=== PATIENT | male | born 1985 | race Two or more races ===

== ENCOUNTER 2017-02-26 10:20 | Emergency (ER) | payer BC ==
[~2017-02-26] VITALS: Ht 165.1 cm; Wt 83.9 kg
[~2017-02-26 10:20] MED LIST: [UNRECOGNIZED DRUG - REMARK]
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
--- NOTE | 2017-02-26 11:59 | NUR ---
decompression of subungual hematoma done by dr aleman using electrocautery. pt tolerated procedure well.
--- NOTE | 2017-02-26 12:03 | NUR ---
Patient discharged to home in stable condition. Written and verbal after care instructions given. Patient verbalizes understanding of instruction.
[2017-02-26 12:06] VITALS: BP 128/70
== END 2017-02-26 12:07 | disposition home or self-care (01) ==
LOC: ER 10:23
DX: S90.111A Contusion of right great toe without damage to nail, initial encounter (principal); W22.8XXA Striking against or struck by other objects, initial encounter; Y93.66 Activity, soccer; Y92.89 Other specified places as the place of occurrence of the external cause; Y99.8 Other external cause status
CPT/HCPCS: 73660-TC; A4606; Z7610

== ENCOUNTER 2017-05-15 21:10 | Emergency (ER) | payer BC ==
[~2017-05-15] VITALS: Ht 162.6 cm; Wt 84.4 kg
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
[2017-05-15] MEDS ORDERED: PENICILLIN V POTASSIUM 500 MG TABLET PO ONE ×2 (22:30→22:42)
--- NOTE | 2017-05-15 22:46 | NUR ---
Patient discharged to home in stable condition. Written and verbal after care instructions given. Patient verbalizes understanding of instruction. Patient is ambulatory with a steady gait, no further complaints.
--- NOTE | 2017-05-15 22:46 | NUR ---
PATIENT REFUSED TO TAKE PENICILLIN PO, ENCOURAGED X3, EXPLAINED RISKS AND BENEFITS, PATIENT STILL HAS REFUSED. DR RIOS NOTIFIED.
[2017-05-15 22:50] VITALS: BP 158/89
== END 2017-05-15 22:51 | disposition home or self-care (01) ==
LOC: ER 21:11
DX: S00.531A Contusion of lip, initial encounter (principal); W22.8XXA Striking against or struck by other objects, initial encounter; Y92.89 Other specified places as the place of occurrence of the external cause; Y93.89 Activity, other specified; Y99.8 Other external cause status
CPT/HCPCS: A4606; Z7610

== ENCOUNTER → 2017-09-19 | Emergency (ER) | payer BC ==
[~2017-09-19] VITALS: Ht 165.1 cm; Wt 81.6 kg
[~2017-09-19] MED LIST changes: +ASPIRIN 81 MG TAB.CHEW ONE; +ASPIRIN 81 MG TAB.CHEW PO ONE
--- NOTE | 2017-09-19 06:20 | NUR ---
PT PRESENTED TO THE ER WITH A C/O MEDIAL/L SIDED CHEST PAIN X 1 WEEK. PT STATED THAT HE FELT LIKE HIS HEART WAS "GOING TO EXPLODE". PT IS ALSO C/O PAIN WITH INSPIRATION. PAIN IS 6/10. DR. MAK IS AT THE BEDSIDE.
[2017-09-19 06:36] LABS: BASOPHILS % (AUTO) 0.6 % (0.0-2.0); EOSINOPHILS # (AUTO) 0.2 /CMM (0.0-0.7); EOSINOPHILS % (AUTO) 4.1 % (0.0-6.0); HEMATOCRIT 43 % (39-51); HEMOGLOBIN 14.9 g/dL (13.5-17.5); LYMPHOCYTES # (AUTO) 2.3 /CMM (0.8-4.8); MEAN CORPUSCULAR HEMOGLOBIN 30 PG (26.0-33.0); MEAN CORPUSCULAR HGB CONC 35 g/dl (31.0-36.0); MEAN CORPUSCULAR VOLUME 87 fL (80-96); MONOCYTES # (AUTO) 0.5 /CMM (0.1-1.30); MONOCYTES % (AUTO) 7.9 % (2.0-12.0); NEUTROPHILS # (AUTO) 2.9 /CMM (1.8-8.9); NEUTROPHILS % (AUTO) 49.4 % (43.0-81.0); PLATELET COUNT (AUTO) 250 /CMM (150-450); RDW COEFFICIENT OF VARIATION 13.6 (11.5-15.0); RED BLOOD CELL COUNT(AUTO) 4.94 MIL/uL (4.5-6.0)
[2017-09-19 06:46] LABS: CALCIUM, SERUM 8.9 mg/dL (8.5-10.1); CARBON DIOXIDE 28 mmol/L (21-32); CHLORIDE 107 mmol/L (98-107); CREATININE 0.8 mg/dL (0.6-1.3); GLUCOSE 86 mg/dL (74-106); POTASSIUM 3.7 mmol/L (3.5-5.1); SODIUM SERUM 144 mmol/L (136-145); UREA NITROGEN, BLOOD 13 mg/dL (7-18)
[2017-09-19 06:54] LABS: INR 0.86 (0.87-1.13); PROTHROMBIN TIME 8.9 SECS (9.5-12.7)
--- NOTE | 2017-09-19 07:00 | NUR ---
CXR DONE AT THE BEDSIDE.
--- NOTE | 2017-09-19 07:05 | NUR ---
ASSUMED CARE OF PT. RECVD REPORT FROM RAMONA. PT AAO4. C/O LEFT STERNAL CP 02/09 [place] AT PRESENT. "FEELS BETTER THAN WHEN I CAME IN. 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 I HAVE HIGH BLOOD PRESSURE AND IT RUNS IN MY FAMILY". NO SOB. DOES NOT APPEAR TO BE IN PAIN, BUT STATES "IT FEELS LIKE MY HEART IS GOING TO JUMP OUT OF MY CHEST". CXR AND TROPS PENDING RESULTS. 18G PIV INTACT.
--- NOTE | 2017-09-19 07:05 | NUR ---
REPORT GIVEN TO ENRRIQUE SUH FOR FREDRICK.
[2017-09-19 07:07] LABS: TROPONIN I < 0.017 ng/mL (0.00-0.056)
[2017-09-19 07:59] VITALS: BP 141/65
--- NOTE | 2017-09-19 08:01 | NUR ---
D/C HOME VIA DRIVING SELF IN CAR. PT STABLE. D.DIMER AND TROP NEG. EDUCATION HANDOUT FOR NONSPECIFIC CP DISCUSSED AND PROVIDED TO PT. D/C RAC 18G PIV.
== END | disposition home or self-care (01) ==
LOC: ER 06:11
DX: R07.9 Chest pain, unspecified (principal); R05 Cough; Z79.82 Long term (current) use of aspirin
CPT/HCPCS: 36415; 71010; 80048; 84484; 85025; 85378; 85730; 93005; 99285; A4606; Z7610

== ENCOUNTER 2019-01-10 16:54 | Emergency (ER) | payer BC ==
[~2019-01-10] VITALS: Ht 165.1 cm; Wt 78.0 kg
[~2019-01-10 16:54] MED LIST changes: -ASPIRIN 81 MG TAB.CHEW ONE; -ASPIRIN 81 MG TAB.CHEW PO ONE
--- NOTE | 2019-01-10 17:00 | NUR ---
AAOX3, CAME TO ER C/O PRESSURE ON THE LEFT EYE SINCE YESTERDAY. RR IS EVEN AND UNLABORED WITH NAD NOTED. SKIN IS WARM AND DRY. AWAITING MD FOR EVAL.
[2019-01-10] MEDS ORDERED: FLUORESCEIN SODIUM OPHTH 1 EA STRIP ONE (17:48)
[2019-01-10] MEDS ORDERED: FLUORESCEIN SODIUM OPHTH 1 EA STRIP OP ONE (18:00)
[2019-01-10] MEDS ORDERED: TETRACAINE HCL/PF 0.5% UD 2 ML BOTTLE LEFTEYE ONE ×2 (18:00)
[2019-01-10 18:59] VITALS: BP 145/85
--- NOTE | 2019-01-10 18:59 | NUR ---
Patient discharged to home in stable condition. Written and verbal after care instructions given. Patient verbalizes understanding of instruction.
== END 2019-01-10 19:00 | disposition home or self-care (01) ==
LOC: ER 16:54
DX: G43.809 Other migraine, not intractable, without status migrainosus (principal); F17.200 Nicotine dependence, unspecified, uncomplicated
CPT/HCPCS: 82962-TC

== ENCOUNTER 2019-09-05 22:08 | Emergency (ER) | payer BC, MEDICAID ==
[~2019-09-05] VITALS: Ht 165.1 cm; Wt 81.6 kg
[2019-09-05 22:08] VITALS: BP 155/103
[2019-09-05 22:48] LABS: BASOPHILS # (AUTO) 0.1 /CMM (0.0-0.2); BASOPHILS % (AUTO) 0.9 % (0.0-2.0); EOSINOPHILS % (AUTO) 4.5 % (0.0-6.0); HEMATOCRIT 43 % (39-51); HEMOGLOBIN 15.4 g/dL (13.5-17.5); LYMPHOCYTES # (AUTO) 1.9 /CMM (0.8-4.8); LYMPHOCYTES % (AUTO) 27.7 % (20.0-44.0); MEAN CORPUSCULAR HGB CONC 36 g/dl (31.0-36.0); MEAN CORPUSCULAR VOLUME 89 fL (80-96); MONOCYTES # (AUTO) 0.4 /CMM (0.1-1.30); MONOCYTES % (AUTO) 5.1 % (2.0-12.0); NEUTROPHILS # (AUTO) 4.3 /CMM (1.8-8.9); NEUTROPHILS % (AUTO) 61.8 % (43.0-81.0); PLATELET COUNT (AUTO) 308 /CMM (150-450); RED BLOOD CELL COUNT(AUTO) 4.84 MIL/uL (4.5-6.0)
[2019-09-05 22:54] LABS: CALCIUM, SERUM 8.7 mg/dL (8.5-10.1); CARBON DIOXIDE 31 mmol/L (21-32); CHLORIDE 104 mmol/L (98-107); CREATININE 1.1 mg/dL (0.6-1.3); GLUCOSE 128 mg/dL (74-106); POTASSIUM 3.8 mmol/L (3.5-5.1); SODIUM SERUM 138 mmol/L (136-145); UREA NITROGEN, BLOOD 11 mg/dL (7-18)
--- NOTE | 2019-09-05 23:02 | NUR ---
C/O NONRADIATING L SIDED CP X1 MONTH. COCCAINE USE 1 WEEK AGO. PT AAOX4, VSS. RR EVEN & UNLABORED. DENIES SOB, DIZZINESS, N/V, WEAKNESS @ THIS TIME. PT SEEN & EVAL'D BY DR. RAYMOND. 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 WILL CONT TO MONITOR.
[2019-09-05 23:06] LABS: ALBUMIN 3.8 g/dL (3.4-5.0); ALKALINE PHOSPHATASE 114 U/L (46-116); BILIRUBIN,TOTAL 0.5 mg/dL (0.2-1.0); TOTAL PROTEIN, SERUM 7.6 g/dL (6.4-8.2)
[2019-09-05 23:19] LABS: ALANINE AMINOTRANSFERASE 48 U/L (12-78); ASPARTATE AMINOTRANSFERASE 36 U/L (15-37)
[2019-09-05] MEDS ORDERED: ASPIRIN 325 MG TABLET ONE (23:38)
[2019-09-05] MEDS: ASPIRIN 325 MG TABLET PO ONE (23:40)
--- NOTE | 2019-09-06 00:01 | NUR ---
Patient does not wish to proceed with medical care recommended by Dr. RAYMOND. Patient given information related to possible complications, up to and including , which could occur as a result of leaving the hospital at this time. Patient verbalizes understanding of risks involved due to leaving against medical advice. Patient has signed AMA form.
== END 2019-09-06 00:03 | disposition left against medical advice (07) ==
LOC: ER 22:10
DX: R07.89 Other chest pain (principal); R94.31 Abnormal electrocardiogram [ECG] [EKG]; F17.200 Nicotine dependence, unspecified, uncomplicated
CPT/HCPCS: 36415; 71045-TC; 80048-TC; 80076-TC; 80305; 84484-TC; 85025-TC; 85730-TC

== ENCOUNTER 2020-05-27 21:02 | Emergency (ER) | payer BC ==
[~2020-05-27] VITALS: Ht 165.1 cm; Wt 81.6 kg
--- NOTE | 2020-05-27 21:16 | NUR ---
CALLED PT TO TRIAGE ROOM. NO ANSWER
--- NOTE | 2020-05-27 21:20 | NUR ---
CALLED FOR TRIAGE. NO ANSWER
[2020-05-27 21:36] VITALS: BP 143/84
[2020-05-27 22:26] LABS: APPEARANCE,URINE CLEAR (CLEAR); BILIRUBIN,URINE NEGATIVE (NEGATIVE); BLOOD, URINE NEGATIVE Ery/uL (NEGATIVE); COLOR,URINE YELLOW (YELLOW); KETONES,URINE NEGATIVE (NEGATIVE); LEUKOCYTE ESTERASE ,URINE NEGATIVE (NEGATIVE); NITRITE, URINE NEGATIVE (NEGATIVE); PH,URINE 7.5 (5.0-8.0); PROTEIN,URINE NEGATIVE (NEGATIVE); UGLUCOSE NEGATIVE (NEGATIVE); UROBILINOGEN,URINE 0.2 EU/dL (0.2)
[2020-05-27] MEDS ORDERED: DOXYCYCLINE HYCLATE (100 MG) 100 MG TABLET PO ONE (22:30)
[2020-05-27] MEDS ORDERED: CEFTRIAXONE 500 MG VIAL IM ONE (22:30)
[2020-05-27] MEDS ORDERED: CEFTRIAXONE 500 MG VIAL ONE (22:38)
[2020-05-27] MEDS ORDERED: DOXYCYCLINE HYCLATE (100 MG) 100 MG TABLET ONE (22:39)
[2020-05-27] MEDS ORDERED: LIDOCAINE /MPF 1% VIAL 5 ML VIAL ONE (22:41)
== END 2020-05-27 22:51 | disposition home or self-care (01) ==
LOC: ER 21:07
DX: N45.1 Epididymitis (principal); F17.200 Nicotine dependence, unspecified, uncomplicated
CPT/HCPCS: 76870; 81001; 87491; 87591; 96372; 99284; J0696; J3490; 81000-TC

== ENCOUNTER 2020-06-03 01:57 | Emergency (ER) | payer BC ==
[~2020-06-03] VITALS: Ht 165.1 cm; Wt 81.6 kg
[2020-06-03 02:16] VITALS: BP 144/84
[2020-06-03 03:15] LABS: APPEARANCE,URINE CLEAR (CLEAR); BILIRUBIN,URINE NEGATIVE (NEGATIVE); BLOOD, URINE NEGATIVE Ery/uL (NEGATIVE); COLOR,URINE YELLOW (YELLOW); KETONES,URINE NEGATIVE (NEGATIVE); LEUKOCYTE ESTERASE ,URINE NEGATIVE (NEGATIVE); NITRITE, URINE NEGATIVE (NEGATIVE); PH,URINE 7.5 (5.0-8.0); PROTEIN,URINE NEGATIVE (NEGATIVE); UGLUCOSE NEGATIVE (NEGATIVE); UROBILINOGEN,URINE 0.2 EU/dL (0.2)
== END 2020-06-03 03:55 | disposition home or self-care (01) ==
LOC: ER 01:59
DX: R10.30 Lower abdominal pain, unspecified (principal); F17.200 Nicotine dependence, unspecified, uncomplicated
CPT/HCPCS: 81000-TC

== ENCOUNTER → 2020-07-09 | Emergency (ER) | payer BC ==
[~2020-07-09] VITALS: Ht 165.1 cm; Wt 81.6 kg
--- NOTE | 2020-07-09 18:15 | NUR ---
SEEN BY MD WITH NEW ORDERS NOTED.
[2020-07-09 18:31] LABS: APPEARANCE,URINE Clear (CLEAR); BILIRUBIN,URINE Negative (NEGATIVE); BLOOD, URINE Negative Ery/uL (NEGATIVE); COLOR,URINE Yellow (YELLOW); KETONES,URINE Negative (NEGATIVE); LEUKOCYTE ESTERASE ,URINE Negative (NEGATIVE); NITRITE, URINE Negative (NEGATIVE); PH,URINE 5.5 (5.0-8.0); PROTEIN,URINE Negative (NEGATIVE); UGLUCOSE Negative (NEGATIVE); UROBILINOGEN,URINE 0.2 EU/dL (0.2)
[2020-07-09 19:00] VITALS: BP 143/86
--- NOTE | 2020-07-09 19:02 | NUR ---
PT BIBSELF WITH C/O LEFT TESTICULAR PAIN OF 5/10 X 5 DAYS. NOTED WITH SWELLING. V/S STABLE. AWAITING FOR MD ORDER
--- NOTE | 2020-07-09 19:27 | NUR ---
Patient discharged to home in stable condition. Written and verbal after care instructions given. Patient verbalizes understanding of instruction.
--- NOTE | 2020-07-09 19:27 | NUR ---
unable to discahrge due to [facility]
== END | disposition home or self-care (01) ==
LOC: ER 19:26
DX: N45.1 Epididymitis (principal); I86.1 Scrotal varices; F17.200 Nicotine dependence, unspecified, uncomplicated
CPT/HCPCS: 76870-TC; 81000-TC; 87491; 87591

== ENCOUNTER 2020-07-17 02:49 | Emergency (ER) | payer BC ==
[~2020-07-17] VITALS: Ht 165.1 cm; Wt 81.6 kg
[2020-07-17 02:49] VITALS: BP 153/86
== END 2020-07-17 02:58 | disposition home or self-care (01) ==
LOC: ER 02:49
DX: R22.0 Localized swelling, mass and lump, head (principal); Z02.89 Encounter for other administrative examinations

== ENCOUNTER 2020-10-14 02:11 | Emergency (ER) | payer BC ==
[~2020-10-14] VITALS: Ht 132.1 cm; Wt 83.9 kg
--- NOTE | 2020-10-14 03:21 | NUR ---
PT BIBSELF C/O HIGH BP READING AT HOME. 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 PT AAOX4. AMBULATORY WITH STEADY GAIT. RESPIRATIONS EVEN AND UNLABORED. SKIN WARM AND INTACT. NO ACUTE DISTRESS NOTED AT THIS TIME. PENDING MD PALMER
--- NOTE | 2020-10-14 03:25 | NUR ---
PT STATES "I THINK I FEEL BETTER NOW, CAN YOU JUST RECHECK BY BLOOD PRESSURE AGAIN IN A FEW MINUTES AND THEN I'LL DECIDE IF I WANT TO GO HOME" PT AAOX4. NO ACUTE DISTRESS NOTED AT THIS TIME. AWARE
[2020-10-14 03:40] VITALS: BP 146/95
--- NOTE | 2020-10-14 03:40 | NUR ---
PT LEFT BEFORE MD EVALUATION
== END 2020-10-14 05:45 | disposition left against medical advice (07) ==
LOC: ER 02:12
DX: I10 Essential (primary) hypertension (principal); Z53.21 Procedure and treatment not carried out due to patient leaving prior to being seen by health care provider

== ENCOUNTER 2020-11-23 09:32 | Emergency (ER) | payer BC ==
[~2020-11-23] VITALS: Ht 167.6 cm; Wt 83.9 kg
--- NOTE | 2020-11-23 09:58 | NUR ---
c/o chest sharp pain x 4 hours, radiating to left shoulder and arm numbness. PT AAOX4, VSS. RR EVEN & UNLABORED. DENIES SOB, DIZZINESS, N/V, WEAKNESS AT THIS TIME. PT SEEN & EVAL'D BY DR. GARCIA. PLACED ON ESTATE TAX EXAMINER, SR. WILL CONT TO MONITOR.
[2020-11-23 10:03] LABS: BASOPHILS % (AUTO) 0.5 % (0.0-2.0); EOSINOPHILS % (AUTO) 0.9 % (0.0-6.0); HEMATOCRIT 42 % (39-51); HEMOGLOBIN 14.5 g/dL (13.5-17.5); LYMPHOCYTES # (AUTO) 2.3 /CMM (0.8-4.8); LYMPHOCYTES % (AUTO) 40.4 % (20.0-44.0); MEAN CORPUSCULAR HGB CONC 34 g/dl (31.0-36.0); MEAN CORPUSCULAR VOLUME 87 fL (80-96); MONOCYTES # (AUTO) 0.3 /CMM (0.1-1.30); MONOCYTES % (AUTO) 4.7 % (2.0-12.0); NEUTROPHILS % (AUTO) 53.5 % (43.0-81.0); PLATELET COUNT (AUTO) 263 /CMM (150-450); RED BLOOD CELL COUNT(AUTO) 4.81 MIL/uL (4.5-6.0); WHITE BLOOD COUNT (AUTO) 5.7 K/uL (4.3-11.0)
[2020-11-23 10:20] LABS: BILIRUBIN,TOTAL 0.7 mg/dL (0.2-1.0); CALCIUM, SERUM 8.8 mg/dL (8.5-10.1); CARBON DIOXIDE 26 mmol/L (21-32); CHLORIDE 103 mmol/L (98-107); GLUCOSE 120 mg/dL (74-106); POTASSIUM 3.6 mmol/L (3.5-5.1); SODIUM SERUM 141 mmol/L (136-145); UREA NITROGEN, BLOOD 13 mg/dL (7-18)
[2020-11-23 10:21] LABS: ALANINE AMINOTRANSFERASE 31 U/L (12-78); ALBUMIN 3.9 g/dL (3.4-5.0); ALKALINE PHOSPHATASE 101 U/L (46-116); ASPARTATE AMINOTRANSFERASE 18 U/L (15-37); BILIRUBIN,DIRECT 0.2 mg/dL (0.0-0.2); TOTAL PROTEIN, SERUM 7.4 g/dL (6.4-8.2)
--- NOTE | 2020-11-23 11:35 | NUR ---
Patient discharged to home in stable condition. Written and verbal after care instructions given. Patient verbalizes understanding of instruction. IV removed. Catheter intact and site benign. Pressure and 4x4 applied to site. No bleeding noted.
[2020-11-23 11:36] VITALS: BP 138/89
== END 2020-11-23 11:36 | disposition home or self-care (01) ==
LOC: ER 09:32
DX: R07.89 Other chest pain (principal); I10 Essential (primary) hypertension; F17.200 Nicotine dependence, unspecified, uncomplicated
CPT/HCPCS: 36415; 71045-TC; 80048-TC; 80076-TC; 84484-TC; 85025-TC; 85730-TC

== ENCOUNTER 2020-12-10 01:14 | Emergency (ER) | payer BC ==
[~2020-12-10] VITALS: Ht 167.6 cm; Wt 81.6 kg
[2020-12-10 01:18] VITALS: BP 155/97
== END 2020-12-10 01:29 | disposition left against medical advice (07) ==
LOC: ER 01:15
DX: I10 Essential (primary) hypertension (principal); Z53.21 Procedure and treatment not carried out due to patient leaving prior to being seen by health care provider

== ENCOUNTER 2023-05-25 00:42 | Emergency (ER) | payer BC ==
[~2023-05-25] VITALS: Ht 167.6 cm; Wt 83.9 kg
[2023-05-25] MEDS ORDERED: IOHEXOL-350 100 ML VIAL IV ONE (02:12)
[2023-05-25] MEDS ORDERED: CT SWABBABLE VALVE TRANS SET 1 EA INFUS.SET MC ONE (02:12)
[2023-05-25 02:22] LABS: BASOPHILS % (AUTO) 0.4 % (0.0-2.0); EOSINOPHILS # (AUTO) 0.1 K/uL (0.0-0.7); EOSINOPHILS % (AUTO) 0.8 % (0.0-6.0); HEMATOCRIT 44 % (39-51); HEMOGLOBIN 15.3 g/dL (13.5-17.5); LYMPHOCYTES # (AUTO) 2.3 K/uL (0.8-4.8); LYMPHOCYTES % (AUTO) 34.4 % (20.0-44.0); MEAN CORPUSCULAR HEMOGLOBIN 30 PG (26.0-33.0); MEAN CORPUSCULAR HGB CONC 34 g/dl (31.0-36.0); MEAN CORPUSCULAR VOLUME 86 fL (80-96); MONOCYTES # (AUTO) 0.4 K/uL (0.1-1.30); MONOCYTES % (AUTO) 6.4 % (2.0-12.0); NEUTROPHILS # (AUTO) 3.8 K/uL (1.8-8.9); PLATELET COUNT (AUTO) 293 K/uL (150-450); RED BLOOD CELL COUNT(AUTO) 5.15 MIL/uL (4.5-6.0); RED CELL DISTRIBUTION WIDTH 13.2 % (11.5-15.0); WHITE BLOOD COUNT (AUTO) 6.6 K/uL (4.3-11.0)
[2023-05-25 02:31] LABS: CALCIUM, SERUM 9.4 mg/dL (8.5-10.1); CREATININE 1.1 mg/dL (0.6-1.3); POTASSIUM 3.7 mmol/L (3.5-5.1)
[2023-05-25 02:37] LABS: INR 0.95 (0.91-1.10); PARTIAL THROMBOPLASTIN TIME 25.3 SEC (24.3-34.3)
[2023-05-25 09:00] VITALS: BP 139/87; TEMP 98.1; O2SAT 98
== END 2023-05-25 09:00 | disposition home or self-care (01) ==
LOC: ER 00:43
DX: G44.82 Headache associated with sexual activity (principal); I10 Essential (primary) hypertension; F17.200 Nicotine dependence, unspecified, uncomplicated
CPT/HCPCS: 99285; 70498; 70496; 85025; 80048; 36415; 85730; 70450; Q9967

== ENCOUNTER 2024-03-20 20:16 | Emergency (ER) | payer BC ==
[~2024-03-20] VITALS: Ht 165.1 cm; Wt 76.2 kg
[2024-03-20 21:33] LABS: BASOPHILS % (AUTO) 0.5 % (0.0-2.0); EOSINOPHILS # (AUTO) 0.1 K/uL (0.0-0.7); EOSINOPHILS % (AUTO) 1.1 % (0.0-6.0); HEMATOCRIT 42 % (39-51); HEMOGLOBIN 14.5 g/dL (13.5-17.5); LYMPHOCYTES # (AUTO) 1.8 K/uL (0.8-4.8); LYMPHOCYTES % (AUTO) 26.7 % (20.0-44.0); MEAN CORPUSCULAR HEMOGLOBIN 30 PG (26.0-33.0); MEAN CORPUSCULAR HGB CONC 34 g/dl (31.0-36.0); MEAN CORPUSCULAR VOLUME 86 fL (80-96); MONOCYTES # (AUTO) 0.4 K/uL (0.1-1.30); MONOCYTES % (AUTO) 5.7 % (2.0-12.0); NEUTROPHILS # (AUTO) 4.3 K/uL (1.8-8.9); PLATELET COUNT (AUTO) 277 K/uL (150-450); RED BLOOD CELL COUNT(AUTO) 4.91 MIL/uL (4.5-6.0); WHITE BLOOD COUNT (AUTO) 6.6 K/uL (4.3-11.0)
[2024-03-20 21:49] LABS: CALCIUM, SERUM 9.2 mg/dL (8.5-10.1); CARBON DIOXIDE 25 mmol/L (21-32); CHLORIDE 104 mmol/L (98-107); CREATININE 0.9 mg/dL (0.6-1.3); GLUCOSE 110 mg/dL (74-106); POTASSIUM 3.6 mmol/L (3.5-5.1); SODIUM SERUM 140 mmol/L (136-145); UREA NITROGEN, BLOOD 18 mg/dL (7-18)
[2024-03-20 21:57] LABS: ALANINE AMINOTRANSFERASE 24 U/L (12-78); ALBUMIN 3.7 g/dL (3.4-5.0); ALKALINE PHOSPHATASE 127 U/L (46-116); ASPARTATE AMINOTRANSFERASE 10 U/L (15-37); BILIRUBIN,DIRECT 0.1 mg/dL (0.0-0.2); BILIRUBIN,TOTAL 0.5 mg/dL (0.2-1.0); NT-PRO BNP 16 pg/mL (0-125); TOTAL PROTEIN, SERUM 7.6 g/dL (6.4-8.2)
[2024-03-20 22:09] VITALS: BP 144/91; TEMP 98; O2SAT 100
== END 2024-03-20 22:09 | disposition home or self-care (01) ==
LOC: ER 20:16
DX: R07.9 Chest pain, unspecified (principal); R06.02 Shortness of breath; R42 Dizziness and giddiness; R53.83 Other fatigue; I10 Essential (primary) hypertension; F19.10 Other psychoactive substance abuse, uncomplicated; F17.200 Nicotine dependence, unspecified, uncomplicated
CPT/HCPCS: 36415; 71045-TC; 80048-TC; 80076-TC; 83880; 84484-TC; 85025-TC